=== PATIENT | female | born 2000 | race Caucasian/White ===

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

== ENCOUNTER 2020-05-01 15:17 | Emergency (ER) | payer MEDICAID ==
[~2020-05-01] VITALS: Ht 162.6 cm; Wt 108.9 kg
[2020-05-01 15:26] VITALS: Ht 162.6 cm; Wt 108.9 kg
[2020-05-01 16:30] VITALS: BP 138/92
== END 2020-05-01 16:30 | disposition home or self-care (01) ==
LOC: ED 15:17
DX: B35.6 Tinea cruris (principal)

== ENCOUNTER 2020-09-06 16:55 | Emergency (ER) | payer SELFPAY ==
[~2020-09-06] VITALS: Ht 162.6 cm; Wt 96.6 kg
[2020-09-06 19:40] VITALS: BP 109/61
== END 2020-09-06 19:40 | disposition home or self-care (01) ==
LOC: ED 16:55
DX: A64 Unspecified sexually transmitted disease (principal)
CPT/HCPCS: 87491; 87591; J0696